=== PATIENT | female | born 1995 | race Caucasian/White ===

== ENCOUNTER 2021-03-08 06:16 | Emergency (ER) | payer MEDICAID ==
[~2021-03-08] VITALS: Ht 162.6 cm; Wt 83.5 kg
--- NOTE | 2021-03-08 07:01 | NUR ---
report to rob, rns
--- NOTE | 2021-03-08 07:02 | NUR ---
bedside report received from echo elise. pt a&o, resps even and unlabored, deb.
--- NOTE | 2021-03-08 07:32 | NUR ---
report given to bogdan elise
--- NOTE | 2021-03-08 07:36 | NUR ---
Report received from Ranjan. Care assumed
--- NOTE | 2021-03-08 07:36 | NUR ---
pt out of room to [facility]
--- NOTE | 2021-03-08 08:17 | NUR ---
pt returned fro [facility]
[2021-03-08 09:23] VITALS: BP 107/67
--- NOTE | 2021-03-08 09:25 | NUR ---
Patient/Caregiver given discharge instructions and they have confirmed that they understand the instructions. Patient ambulatory with steady gait.
== END 2021-03-08 09:26 | disposition home or self-care (01) ==
LOC: ED 06:50
DX: O03.9 Complete or unspecified spontaneous abortion without complication (principal); E11.9 Type 2 diabetes mellitus without complications; Z3A.01 Less than 8 weeks gestation of pregnancy
CPT/HCPCS: 36415; 76801; 84702; 86901; 99284